=== PATIENT | female | born 1990 | race Caucasian/White ===

== ENCOUNTER → 2023-08-06 13:22 | Outpatient (REF) | payer BC, SELFPAY | LOC: PNTC 13:22 | PROVIDERS: ATTENDING PHYSICIAN Obstetrics & Gynecology | DX: Z36.0 Encounter for antenatal screening for chromosomal anomalies (principal); Z36.82 Encounter for antenatal screening for nuchal translucency | CPT/HCPCS: 76801 ==

== ENCOUNTER → 2023-08-13 11:27 | Outpatient (REF) | payer BC, SELFPAY | LOC: PNTC 11:27 | PROVIDERS: ATTENDING PHYSICIAN Obstetrics & Gynecology | DX: Q91.3 Trisomy 18, unspecified (principal) | CPT/HCPCS: 36415; 59015; 76801; 76945 ==

== ENCOUNTER → 2023-12-16 10:09 | Outpatient (REF) | payer BC, SELFPAY | LOC: PNTC 10:09 | PROVIDERS: ATTENDING PHYSICIAN Obstetrics & Gynecology | DX: O09.529 Supervision of elderly multigravida, unspecified trimester (principal) | CPT/HCPCS: 36415 ==

== ENCOUNTER 2024-05-09 17:12 | Observation (INO) | payer BC, SELFPAY ==
[2024-05-09 17:18] VITALS: BP 105/73; BMI 29.6
== END 2024-05-09 18:29 | disposition home or self-care (01) ==
LOC: LDRP 17:12
PROVIDERS: ADMITTING PHYSICIAN Obstetrics & Gynecology
DX: O47.03 False labor before 37 completed weeks of gestation, third trimester (principal); Z3A.36 36 weeks gestation of pregnancy; K21.9 Gastro-esophageal reflux disease without esophagitis
CPT/HCPCS: 59025; 87070; G0378

== ENCOUNTER → 2024-06-01 12:35 | Outpatient (REF) | payer BC, SELFPAY | LOC: PNTC 12:35 | PROVIDERS: ATTENDING PHYSICIAN Student in an Organized Health Care Education/Training Program | DX: O36.8190 Decreased fetal movements, unspecified trimester, not applicable or unspecified (principal); O41.03X0 Oligohydramnios, third trimester, not applicable or unspecified | CPT/HCPCS: 59025; 76815; 76820 ==

== ENCOUNTER 2024-06-02 03:45 | Inpatient (IN) | payer BC, SELFPAY ==
[2024-06-02 03:56] VITALS: BMI 31.0
[2024-06-02 04:07] VITALS: BP 129/66
[2024-06-02] MEDS: SUBLIMAZE 100 MCG EPIDURAL (05:25)
[2024-06-02] MEDS: FENTANYL/BUPIVACAINE 100 EPIDURAL (05:26)
[2024-06-02] MEDS: LR 1000 IV ×2 (05:45→09:00)
[2024-06-02 06:18] LABS: % Basophils 0.4 % (0-2); % Eosinophils 0.9 % (0-6); % Immature Granulocytes 3.8 % (0-0.5); % Lymphocytes 14.8 % (20.5-51.1); % Monocytes 6.2 % (1.7-9.3); % Neutrophils 73.9 % (42.2-75.2); Absolute Basophils 0.1 10^3/uL (0-0.2); Absolute Eosinophils 0.1 10^3/uL (0-0.7); Absolute Immature Granulocytes 0.5 10^3/uL (0-0.05); Absolute Lymphocytes 1.8 10^3/uL (1.2-3.4); Absolute Monocytes 0.8 10^3/uL (0.1-0.6); Absolute Neutrophils 9.1 10^3/uL (1.4-6.5); Hematocrit 35.1 % (37.0-47.0); Hemoglobin 11.9 g/dL (12.0-16.0); Mean Corp Hgb Conc. 33.9 g/dL (33.0-37.0); Mean Corpuscular Hgb 31.2 pg (27.0-31.0); Mean Corpuscular Volume 92.1 fL (81.0-99.0); Mean Platelet Volume 10.8 fL (7.4-10.4); Nucleated Red Blood Cells % 0 %; Platelet Count 185 10^3/uL (130-400); Red Blood Cell Count 3.81 10^6/uL (4.20-5.40); White Blood Cell Count 12.3 10^3/uL (4.8-10.8)
[2024-06-02] MEDS: PITOCIN 30 UNITS/NSS 500 ML IV (11:32)
[2024-06-02] MEDS: TYLENOL 650 MG PO (23:52)
[2024-06-03 04:42] LABS: Hematocrit 33.1 % (37.0-47.0); Hemoglobin 12.1 g/dL (12.0-16.0)
[2024-06-03] MEDS: PRENATAL PLUS 1 TABLET PO (10:47)
[2024-06-03 15:43] LABS: Syphilis/T. pallidum Ab Reflex Negative (Negative)
[2024-06-03] MEDS: TYLENOL 650 MG PO (17:23)
[2024-06-03] MEDS: MOTRIN 600 MG PO (17:23)
[2024-06-04] MEDS: PRENATAL PLUS 1 TABLET PO (07:29)
== END 2024-06-04 10:41 | disposition home or self-care (01) | DRG 807 ==
LOC: LDRP 03:45
PROVIDERS: Obstetrics & Gynecology; ADMITTING PHYSICIAN Obstetrics & Gynecology
PROC: 0KQM0ZZ Repair Perineum Muscle, Open Approach (ICD-10-PCS; 2024-06-02)
PROC: 10E0XZZ Delivery of Products of Conception, External Approach (ICD-10-PCS; 2024-06-02)
DX: O70.1 Second degree perineal laceration during delivery (principal); Z37.0 Single live birth; Z3A.39 39 weeks gestation of pregnancy
CPT/HCPCS: 36415; 85014; 85018; 85025; 86780; 86850; 86900; 86901